=== PATIENT | female | born 1950 | race Caucasian/White ===

== ENCOUNTER → 2017-04-06 | Outpatient (CLI) | payer BC, MEDICARE, OTHER ==
[2016-12-14 14:15] VITALS: BP 126/52
[~2017-04-06] MED LIST: OSEL75CA PO
--- NOTE | 2017-04-06 14:00 | RAD ---
Indication: Palpable lump in the upper abdomen just below the right breast. Sonographic interrogation of the area of lump in the right upper abdominal wall was performed. There is a hypoechoic mass at this location measuring approximately 0.9 x 1.1 x 0.4 cm. This does not appear to be purely cystic. No definite internal vascularity is identified, however, there is some vascularity along the margins. This is somewhat ill-defined. No other masses are seen. Impression: Indistinct hypoechoic mass in the subcutaneous tissues of the right upper abdomen at the area of palpable abnormality. This cannot be characterized as purely cystic. A solid mass lesion cannot be entirely excluded and close clinical follow-up and/or biopsy would be recommended.
== END | disposition home or self-care (01) ==
LOC: US 12:49
PROVIDERS: ATTEND Nurse Practitioner Family
DX: M79.89 Other specified soft tissue disorders (principal); R14.0 Abdominal distension (gaseous)
CPT/HCPCS: 76881

== ENCOUNTER 2019-11-10 07:02 | Emergency (ER) | payer BC, MEDICARE, OTHER ==
[~2019-11-10] VITALS: Ht 162.6 cm; Wt 95.1 kg
[2019-11-10] MEDS ORDERED: ASPIRIN 81 MG TAB.CHEW PO ONE (07:45)
--- NOTE | 2019-11-10 07:53 | PHYS DOC ---
Past History Past Medical History: Cancer ([id number]), Hypothyroid, Other Past Surgical History: Cholecystectomy, Other Additional Past Surgical Histo: lumpectomy Smoking: Non-smoker Alcohol Use: Rarely Drug Use: None Adult General Chief Complaint Chief Complaint: OTHER COMPLAINTS HPI HPI Patient is a 69-year-old female with left-sided facial paresthesia that she first noted at approximately 4:00 this morning, on waking up. She was last normal at 2030 last night as she went to sleep. She does not have any difficulty speaking, moving her arms or legs, and no other paresthesia. She admits to drinking alcohola deric last night with salt, and having salted food at a [employer] restaurant. The paresthesia has improved during the course of the morning. She describes the sensation as a feather brushing the left side of her face. who is with her denies that there is been any change in behavior or mentation, no change in speaking or slurred speech, and no weakness noted in her arms or legs. She reports having similar episode in the past which was "incorrectly diagnosed as a TIA" but her primary doctor believed that she was hypoglycemic. This is been going on intermittently for months. She was convinced to come to the emergency department today by her . She has several other complaints including intermittent chills for the past week. She has not taken her temperature. She has not taken any antipyretics. She denies any cough or fever. She denies any recent travel. She denies any dysuria or hematuria. Nothing makes this better or worse. She additionally notes she has swollen lymph nodes in the left side of her neck. Normally when they swell they swell equally bilaterally. She noticed this in the mere this morning. She is concerned because of a remote history of breast cancer, 2003, that was treated with radiation. No chemotherapy. A lumpectomy was performed on the right side. No mastectomy. No recent changes in weight. She has a history of hypothyroidism, reports that she had her thyroid hormone levels checked relatively recently and there were no changes made in her thyroid supplementation. No recent changes in medications.[] Review of Systems Review of Systems Constitutional: Denies fever or weight change, see history of present illness[] Eyes: Denies change in visual acuity, redness, or eye pain [] HENT: Denies nasal congestion or sore throat [] Respiratory: Denies cough or shortness of breath [] Cardiovascular: No chest pain or palpitations[] GI: Denies abdominal pain, nausea, vomiting, bloody stools or diarrhea [] : Denies dysuria or hematuria [] Musculoskeletal: Denies back pain or joint pain [] Integument: Denies rash or skin lesions [] Neurologic: Denies headache, focal weakness, see history of present illness[] Endocrine: Denies polyuria or polydipsia [] All other systems were reviewed and found to be within normal limits, except as documented in this note. Allergies Allergies Allergies Coded Allergies Type Severity Reaction Last Updated Verified aspirin Allergy Unknown MIGRAINE 12/14/16 Yes dipyridamole Allergy Unknown MIGRAINE 12/14/16 Yes sulfamethoxazole Allergy Unknown HIVES 12/14/16 Yes trimethoprim Allergy Unknown HIVES 12/14/16 Yes codeine Adverse Reaction Unknown VOMITING 12/14/16 Yes Physical Exam Physical Exam Constitutional: Well developed, well nourished, no acute distress, non-toxic appearance. [] HENT: Normocephalic, atraumatic, bilateral external ears normal, oropharynx moist, no oral exudates, nose normal. [] Eyes: PERRLA, EOMI, conjunctiva normal, no discharge. [] Neck: Normal range of motion, no tenderness, supple, no stridor. [] Cardiovascular:Heart rate regular rhythm, no murmur [] Lungs & Thorax: Bilateral breath sounds clear to auscultation [] Abdomen: Bowel sounds normal, soft, no tenderness, no masses, no pulsatile masses. [] Skin: Warm, dry, no erythema, no rash. [] Back: No tenderness, no CVA tenderness. [] Extremities: No tenderness, no cyanosis, no clubbing, ROM intact, 1-2+ pretibial edema bilaterally symmetric. [] Neurologic: Alert and oriented X 3, normal motor function, normal sensory function, no focal deficits noted. Normal gait. See NIH stroke scale[] Psychologic: Affect normal, judgement normal, mood normal. [] Current Patient Data Lab Results Laboratory Tests Test 11/10/19 07:20 11/10/19 07:46 11/10/19 08:35 11/10/19 08:41 Glucose (Fingerstick) 102 mg/dL White Blood Count 6.2 x10^3/uL Red Blood Count 4.28 x10^6/uL Hemoglobin 13.3 g/dL Hematocrit 40.2 % Mean Corpuscular Volume 94 fL Mean Corpuscular Hemoglobin 31 pg Mean Corpuscular Hemoglobin Concent 33 g/dL Red Cell Distribution Width 13.8 % Platelet Count 247 x10^3/uL Neutrophils (%) (Auto) 69 % Lymphocytes (%) (Auto) 23 % Monocytes (%) (Auto) 6 % Eosinophils (%) (Auto) 1 % Basophils (%) (Auto) 1 % Neutrophils # (Auto) 4.3 x10^3uL Lymphocytes # (Auto) 1.4 x10^3/uL Monocytes # (Auto) 0.3 x10^3/uL Eosinophils # (Auto) 0.1 x10^3/uL Basophils # (Auto) 0.0 x10^3/uL Prothrombin Time 9.9 SEC Prothromb Time International Ratio 1.0 Activated Partial Thromboplast Time 27 SEC Sodium Level 138 mmol/L Potassium Level 4.0 mmol/L Chloride Level 103 mmol/L Carbon Dioxide Level 26 mmol/L Anion Gap 9 Blood Urea Nitrogen 13 mg/dL Creatinine 0.9 mg/dL Estimated GFR (Cockcroft-Gault) 62.3 BUN/Creatinine Ratio 14 Glucose Level 103 mg/dL Calcium Level 8.9 mg/dL Magnesium Level 1.9 mg/dL Total Bilirubin 0.3 mg/dL Aspartate Amino Transf (AST/SGOT) 22 U/L Alanine Aminotransferase (ALT/SGPT) 29 U/L Alkaline Phosphatase 84 U/L Troponin I Quantitative < 0.017 ng/mL LO-Vie-I-Type Natriuretic Peptide 57 pg/mL Total Protein 7.9 g/dL Albumin 3.7 g/dL Albumin/Globulin Ratio 0.9 Urine Collection Type Unknown Urine Color Straw Urine Clarity Clear Urine pH 6.0 Urine Specific [place] 1.010 Urine Protein Neg Urine Glucose (UA) Neg mg/dL Urine Ketones (Stick) Neg mg/dL Urine Blood Neg Urine Nitrite Neg Urine Bilirubin Neg Urine Urobilinogen Dipstick 0.2 mg/dL Urine Leukocyte Esterase Trace Urine RBC 0 /HPF Urine WBC 1-4 /HPF Urine Squamous Epithelial Cells Many /LPF Urine Bacteria Few /HPF Current Medications Medications (Trade) Dose Ordered Sig/Greta Route PRN Reason Start Time Stop Time Status Last Admin Dose Admin Aspirin (Children'S Aspirin) 324 mg 1X ONCE PO 11/10/19 07:45 11/10/19 07:48 DC 11/10/19 07:52 Laboratory Tests Test 11/10/19 07:20 Glucose (Fingerstick) 102 mg/dL (70-99) H EKG EKG EKG shows a sinus rhythm at 72 bpm, normal axis, QTC [address] elevations. Interpreted by me at 0813[] Radiology/Procedures Radiology/Procedures REASON: left sided facial paresthesia intermittently for months, dizzines PROCEDURE: CT HEAD WO CONTRAST CT brain without contrast. HISTORY: Left-sided facial paresthesias intermittently for months, dizziness CT scan of brain was done without contrast. Sinuses are clear. There is no intracranial hemorrhage or subdural hematoma. Ventricles are normal in size. There is no mass or shift of the midline. There is decreased density in the periventricular white matter. White matter disease as mildly worsened compared to the study from May 2012. An acute CVA is not identified. IMPRESSION: 1. Worsening chronic white matter disease. 2. No intracranial hemorrhage or mass or acute CVA noted. Chest x-ray: PA and lateral No evidence of an infiltrate, no effusion, no pneumothorax[] Course & Med Decision Making Course & Med Decision Making Pertinent Labs and Imaging studies reviewed. (See chart for details) Emergency department course: Patient arrived, was placed in bed, and tolerated exam well. She was transported to and from [place] without any complications. After the return of laboratory and imaging findings, these were discussed with the patient voiced understanding. She reported that her symptoms had improved while in the emergency department. She was discharged in improved condition with all questions answered. Medical decision making: Patient was not a TPA candidate given that her NIH was 0 and onset of symptoms was greater than 4 and half hours. Do not believe this to be a stroke syndrome nor TIA. There is no evidence of significant electrolyte abnormality. No urinary tract infection. No pneumonia or pneumothorax. This may be a viral syndrome causing these chills. TSH is pending. However, patient reports that she had a recent thyroid panel performed that was normal.[] Dragon Disclaimer Dragon Disclaimer This electronic medical record was generated, in whole or in part, using a voice recognition dictation system. Departure Departure: Impression: Primary Impression: Paresthesia Additional Impression: Chills Disposition: HOME, SELF-CARE Condition: IMPROVED Referrals: DARION VALDEZ (PCP) Follow-up in 2 days Patient Instructions: DASH Diet, Paresthesia Additional Instructions: Follow-up with your regular doctor in 2 days. Your blood pressure was elevated on arrival to the emergency department today it improved during the course of your emergency department stay. Take acetaminophen or ibuprofen as needed for fever or chills, as directed on the packaging. Return to the ER if worsening weakness, fever of more than 101, or any other concerns. NIHSS - ED NIH Stroke Scale: NIH Stroke Scale Response (Comments) Value Level of Consciousness: 0 Alert/Responsive 0 LOC Questions: 0 Answers both correctly 0 LOC Commands: 0 Performs both tasks 0 Best Gaze: 0 Normal 0 Visual: 0 No visual loss 0 Facial Palsy: 0 Normal, symmetrical 0 Motor - Left Arm 0 No drift 0 Motor - Right Arm 0 No drift 0 Motor - Left Leg 0 No drift 0 Motor: Right Leg 0 No drift 0 Limb Ataxia: 0 Absent 0 Sensory: 0 No loss 0 Best Language: 0 Normal 0 Dysathria: 0 Normal 0 Extinction and Inattention: 0 Normal 0 Total 0 Problem Qualifiers VIBHA CUNNINGHAM DO Nov 10, 2019 07:53
--- NOTE | 2019-11-10 08:01 | EKG ---
[address] [address] Test Date: 2019-11-10 Test Time: 07:55:23 Pat Name: BERNARD SOTOMAYOR Department: Room: Gender: F Equal Opportunity Officer: : 1950 Requested By: VIBHA CUNNINGHAM Order Number: [id number] Reading MD: Measurements Intervals Mobile Rate: 72 P: 37 OH: 190 QRS: 12 QRSD: 76 T: 15 QT: 388 QTc: 426 Interpretive Statements SINUS RHYTHM NORMAL ECG RI6.01 No previous ECG available for comparison
[2019-11-10 08:15] LABS: BASO % 1 % (0-3); EOS # 0.1 x10^3/uL (0.0-0.7); EOS % 1 % (0-3); HEMATOCRIT 40.2 % (36.0-47.0); HEMOGLOBIN 13.3 g/dL (12.0-15.5); LYMPH # 1.4 x10^3/uL (1.0-4.8); LYMPH % 23 % (24-48); MEAN CORPUSCULAR HEMOGLOBIN 31 pg (25-35); MEAN CORPUSCULAR HGB CONC 33 g/dL (31-37); MEAN CORPUSCULAR VOLUME 94 fL (79-100); MONO # 0.3 x10^3/uL (0.0-1.1); MONO % 6 % (0-9); NEUT # 4.3 x10^3uL (1.8-7.7); NEUT % 69 % (31-73); PLATELET COUNT 247 x10^3/uL (140-400); RED BLOOD COUNT 4.28 x10^6/uL (3.50-5.40); RED CELL DISTRIBUTION WIDTH 13.8 % (11.5-14.5); WHITE BLOOD COUNT 6.2 x10^3/uL (4.0-11.0)
--- NOTE | 2019-11-10 08:33 | RAD ---
CT brain without contrast. HISTORY: Left-sided facial paresthesias intermittently for months, dizziness CT scan of brain was done without contrast. Sinuses are clear. There is no intracranial hemorrhage or subdural hematoma. Ventricles are normal in size. There is no mass or shift of the midline. There is decreased density in the periventricular white matter. White matter disease as mildly worsened compared to the study from May 2012. An acute CVA is not identified. IMPRESSION: 1. Worsening chronic white matter disease. 2. No intracranial hemorrhage or mass or acute CVA noted. PQRS Compliance Statement: One or more of the following individualized dose reduction techniques were utilized for this examination: 1. Automated exposure control 2. Adjustment of the mA and/or kV according to patient size 3. Use of iterative reconstruction technique Electronically signed by: Morgan Conrad MD (11/10/2019 8:30 AM) [facility] [place]
[2019-11-10 09:16] LABS: BILIRUBIN,URINE NEG (NEG); CLARITY,URINE CLEAR; COLOR,URINE STRAW; GLUCOSE,URINE NEG (NEG)
[2019-11-10 09:17] LABS: BACTERIA,URINE FEW /HPF (0-FEW); NITRITE,URINE NEG (NEG); RBC,URINE 0 /HPF (0-2); SQUAMOUS EPITHELIAL CELL,UR MANY /LPF; UROBILINOGEN,URINE 0.2 mg/dL (0.2 mg/dL)
[2019-11-10 09:19] LABS: ALBUMIN 3.7 g/dL (3.4-5.0); ALBUMIN/GLOBULIN RATIO 0.9 (1.0-1.7); CALCIUM 8.9 mg/dL (8.5-10.1); CREATININE 0.9 mg/dL (0.6-1.0); GFR 62.3; MAGNESIUM 1.9 mg/dL (1.8-2.4); TOTAL BILIRUBIN 0.3 mg/dL (0.2-1.0); TOTAL PROTEIN 7.9 g/dL (6.4-8.2)
[2019-11-10 09:46] VITALS: BP 138/72
--- NOTE | 2019-11-10 11:07 | RAD ---
PA and lateral chest. HISTORY: Chills, paresthesia PA and lateral views were taken of the chest. Lungs are clear. Heart is normal in size. There is no pleural effusion. There is mild dorsal kyphosis. IMPRESSION: 1. No acute chest disease. Electronically signed by: Morgan Conrad MD (11/10/2019 11:04 AM) [facility]
== END 2019-11-10 09:55 | disposition home or self-care (01) ==
LOC: ER 07:02
DX: R20.2 Paresthesia of skin (principal); R50.9 Fever, unspecified; E03.9 Hypothyroidism, unspecified; Z88.6 Allergy status to analgesic agent; Z88.8 Allergy status to other drugs, medicaments and biological substances; Z88.5 Allergy status to narcotic agent; Z88.1 Allergy status to other antibiotic agents; Z88.2 Allergy status to sulfonamides
CPT/HCPCS: 36415; 70450; 71046; 80053; 81001; 82947; 83735; 83880; 84443; 84484; 85025; 85610; 85730; 87040; 87086; 93005; 99285

== ENCOUNTER 2019-11-17 03:45 | Emergency (ER) | payer BC, MEDICARE, OTHER ==
[~2019-11-17] VITALS: Ht 162.6 cm; Wt 95.1 kg
[2019-11-17 04:08] VITALS: BP 151/83
--- NOTE | 2019-11-17 04:51 | PHYS DOC ---
Past History Past Medical History: Cancer, Hypothyroid, Other Past Surgical History: Cancer Surgery, Cholecystectomy, Knee Replacement, Other Additional Past Surgical Histo: lumpectomy Smoking: Non-smoker Alcohol Use: Rarely Drug Use: None Adult General Chief Complaint Chief Complaint: General Complaint HPI HPI 69-year-old female in [facility] with involuntary he up her extremity movements. The patient woke up to go to the restroom around 2 AM and while she was walking to the restroom she noticed that she was having involuntary for extremity movements. She said they were similar to balance corrections that he should make so that she don't fall over. She was not feeling dizzy. She was not trying to move her arms, they were just moving on the ground. This episode lasted for 5 to maybe 10 minutes. She then went back to baseline. She denies any other symptoms. No headache no change in voice no altered sensation. She did have a similar episode one week ago and was worked up in this emergency room by my colleague. This included head CT which did not show any acute findings. She does have some white matter disease that has worsened the last 7 years. The patient does not currently see a neurologist. She has a new primary care physician and is being worked up for a swelling of the left side of her neck as well as the above listed symptoms. Patient denies fever or chills. She recently had her thyroid labs evaluated and does not believe the numbers were unusual. She is on thyroid replacement at baseline. Review of Systems Review of Systems Constitutional: Denies fever or chills [] Eyes: Denies change in visual acuity, redness, or eye pain [] HENT: Denies nasal congestion or sore throat [] Respiratory: Denies cough or shortness of breath [] Cardiovascular: No additional information not addressed in HPI [] GI: Denies abdominal pain, nausea, vomiting, bloody stools or diarrhea [] : Denies dysuria or hematuria [] Musculoskeletal: Denies back pain or joint pain [] Integument: Denies rash or skin lesions [] Neurologic: Involuntary upper extremity movements. Denies headache, focal weakness or sensory changes [] Endocrine: Denies polyuria or polydipsia [] All other systems were reviewed and found to be within normal limits, except as documented in this note. Allergies Allergies Allergies Coded Allergies Type Severity Reaction Last Updated Verified dipyridamole Allergy Unknown MIGRAINE 12/14/16 Yes sulfamethoxazole Allergy Unknown HIVES 12/14/16 Yes trimethoprim Allergy Unknown HIVES 12/14/16 Yes codeine Adverse Reaction Unknown VOMITING 12/14/16 Yes Physical Exam Physical Exam Constitutional: Well developed, obese, well nourished, no acute distress, non- toxic appearance. [] HENT: Normocephalic, atraumatic, bilateral external ears normal, oropharynx moist, no oral exudates, nose normal. [] Eyes: PERRLA, EOMI, conjunctiva normal, no discharge. [] Neck: Normal range of motion, no tenderness, supple, no stridor. [] Cardiovascular:Heart rate regular rhythm, no murmur [] Lungs & Thorax: Bilateral breath sounds clear to auscultation [] Abdomen: Bowel sounds normal, soft, no tenderness, no masses, no pulsatile masses. [] Skin: Warm, dry, no erythema, no rash. [] Back: No tenderness, no CVA tenderness. [] Extremities: No tenderness, no cyanosis, no clubbing, ROM intact, no edema. [] Neurologic: Alert and oriented X 3, normal motor function, normal sensory function, no focal deficits noted. [] Psychologic: Affect normal, judgement normal, mood concerned.[] Current Patient Data Vital Signs Vital Signs Date Time Temp Pulse Resp B/P (MAP) Pulse Ox O2 Delivery O2 Flow Rate FiO2 11/17/19 04:08 97.8 65 18 96 Room Air EKG EKG [] Radiology/Procedures Radiology/Procedures [] Course & Med Decision Making Course & Med Decision Making Pertinent Labs and Imaging studies reviewed. (See chart for details) The patient's labs are unremarkable. Given her recent head CT and the fact that her symptoms have resolved at this time, I do not believe further imaging is necessary. I recommended that she continue to follow up with her primary care physician and referral to a neurologist. She stated verbal understanding. She is stable for discharge at this time. [] Dragon Disclaimer Dragon Disclaimer This electronic medical record was generated, in whole or in part, using a voice recognition dictation system. Departure Departure: Impression: Primary Impression: Involuntary movements Disposition: HOME, SELF-CARE Condition: STABLE Referrals: DARION VALDEZ (PCP) EDITH HOWELL DO Nov 17, 2019 04:51
[2019-11-17 05:09] LABS: BASO # 0.1 x10^3/uL (0.0-0.2); BASO % 2 % (0-3); EOS # 0.1 x10^3/uL (0.0-0.7); EOS % 2 % (0-3); HEMATOCRIT 39.3 % (36.0-47.0); HEMOGLOBIN 13.3 g/dL (12.0-15.5); LYMPH # 1.3 x10^3/uL (1.0-4.8); LYMPH % 25 % (24-48); MEAN CORPUSCULAR HEMOGLOBIN 31 pg (25-35); MEAN CORPUSCULAR HGB CONC 34 g/dL (31-37); MEAN CORPUSCULAR VOLUME 93 fL (79-100); MONO # 0.4 x10^3/uL (0.0-1.1); MONO % 7 % (0-9); NEUT # 3.3 x10^3uL (1.8-7.7); NEUT % 64 % (31-73); PLATELET COUNT 219 x10^3/uL (140-400); RED BLOOD COUNT 4.23 x10^6/uL (3.50-5.40); RED CELL DISTRIBUTION WIDTH 13.3 % (11.5-14.5); WHITE BLOOD COUNT 5.2 x10^3/uL (4.0-11.0)
[2019-11-17 05:16] LABS: CALCIUM 8.7 mg/dL (8.5-10.1); CREATININE 1.1 mg/dL (0.6-1.0); GFR 49.4; POTASSIUM 4.1 mmol/L (3.5-5.1)
[2019-11-17 05:22] LABS: ALBUMIN 3.8 g/dL (3.4-5.0); ALBUMIN/GLOBULIN RATIO 0.9 (1.0-1.7); TOTAL BILIRUBIN 0.3 mg/dL (0.2-1.0); TOTAL PROTEIN 7.9 g/dL (6.4-8.2)
== END 2019-11-17 05:40 | disposition home or self-care (01) ==
LOC: ER 03:45
DX: R25.9 Unspecified abnormal involuntary movements (principal); E03.9 Hypothyroidism, unspecified; Z88.5 Allergy status to narcotic agent; Z88.8 Allergy status to other drugs, medicaments and biological substances; Z88.1 Allergy status to other antibiotic agents; Z88.2 Allergy status to sulfonamides
CPT/HCPCS: 36415; 80053; 85025; 99284

== ENCOUNTER 2021-11-04 09:33 | Inpatient (IN) | payer BC, MEDICARE, OTHER ==
[~2021-11-04] VITALS: Ht 162.6 cm; Wt 76.1 kg
[2021-11-04] VITALS (9 sets, daily range): BP systolic 100–156; BP diastolic 66–95
[2021-11-04] MEDS ORDERED: IV NORMAL SALINE 1,000ML 1,000 ML IV SCH (09:45)
[2021-11-04] MEDS ORDERED: DEXAMETHASONE SOD PHOS 10 MG/ML VIAL. IVP ONE (09:45)
--- NOTE | 2021-11-04 10:16 | PHYS DOC ---
Past History Past Medical History: Cancer, Dementia, Hypothyroid, Other Past Medical History Limited secondary to dementia Past Surgical History: Cancer Surgery, Cholecystectomy, Knee Replacement, Other Additional Past Surgical Histo: lumpectomy Past Surgical History Limited secondary to dementia Smoking: Non-smoker Alcohol Use: Rarely Drug Use: None Social History Limited secondary to dementia General Adult EDM: Chief Complaint: WEAKNESS/GENERALIZED HPI: HPI: 71-year-old female with past medical history of dementia presents via EMS from home with report of generalized weakness, fatigue, and COVID-19. Patient reportedly tested positive with her on 10/28/2021. Patient subsequently has had generalized malaise and weakness. reports patient has not been eating and drinking. EMS reports patient's O2 sats down to 84% on room air upon their arrival. Patient was placed on supplemental O2 with increase in O2 sat up to 94% on 4L NC. Patient is a poor historian secondary to her dementia. Spouse also reports patient was found on floor this morning. Patient denies any headache or neck pain. History of present illness limited secondary to dementia. Review of Systems: Review of Systems: Review of systems limited secondary to dementia Current Medications: Current Meds: Current Medications Medications (Trade) Dose Ordered Sig/Greta Start Time Stop Time Status Last Admin Dose Admin Dexamethasone Sodium Phosphate (Decadron) 10 mg 1X ONCE 11/04/21 09:45 11/04/21 09:46 DC Sodium Chloride 1,000 ml @ 1,000 mls/hr Q1H 11/04/21 09:45 11/04/21 10:44 11/04/21 09:35 1,000 MLS/HR Allergies: Allergies: Allergies Coded Allergies Type Severity Reaction Last Updated Verified dipyridamole Allergy Unknown MIGRAINE 11/04/21 Yes sulfamethoxazole Allergy Unknown HIVES 11/04/21 Yes trimethoprim Allergy Unknown HIVES 11/04/21 Yes codeine Adverse Reaction Unknown VOMITING 11/04/21 Yes Physical Exam: PE: Constitutional: Well developed, well nourished, no acute distress, non-toxic appearance HENT: Normocephalic, atraumatic, TMs clear bilaterally, nares clear Eyes: PERRL, EOMI, conjunctiva normal, no discharge Neck: Normal range of motion, no midline tenderness, supple Lungs & Thorax: No respiratory distress, equal chest rise and fall Abdomen: Soft, no tenderness; pelvis stable and nontender Skin: Warm, dry, no erythema, no rash Extremities: No tenderness, ROM intact, no edema Neurologic: Alert and oriented X name only, confused, speech normal, normal motor function, normal sensory function, no focal deficits noted Psychologic: Affect normal, judgment abnormal Current Patient Data: Vital Signs: Vital Signs Date Time Temp Pulse Resp B/P (MAP) Pulse Ox O2 Delivery O2 Flow Rate FiO2 11/04/21 10:05 99.1 84 18 148/79 (102) 86 Room Air EKG: EKG: @1006 NSR at 74bpm, NO ST elevation, QRS 76ms, QT/QTc 374/420ms, nonspecific t wave inversion III Radiology/Procedures: Radiology/Procedures: PROCEDURE: CT ANGIOGRAPHY CHEST CT angiography of the chest 11/04/2021 12:09 PM Indication: Reason: Hypoxia, COVID, elevated d-dimer, Technique: Multiple contiguous axial images were obtained through the chest after administration of intravenous iodinated contrast. Coronal, sagittal, and 3-D MIP reformations were created. Comparison: Chest radiograph November 10, 2019 Findings: There is no filling defect within central pulmonary arteries or evidence of acute pulmonary embolism. Heart size is normal. No pericardial effusion is identified. No pathologically enlarged mediastinal adenopathy is identified. Scattered small mediastinal lymph nodes noted. No pneumothorax or pleural effusi on is identified. Groundglass infiltrates with areas of intralobular septal thickening are seen throughout both lungs. Mild lower lobe bronchiectasis appears to be present. The findings are consistent with provided history of Covid pneumonia. Within the right lower lobe, adjacent to a branch of the pulmonary artery there is a 7 mm noncalcified nodule (axial image 78). Limited visualization of the upper abdomen demonstrates a right renal cyst measuring 3.3 cm. No acute abnormalities of the upper abdomen are identified no acute osseous changes are identified. Chronic appearing compression deformity of the L1 vertebral body noted. IMPRESSION: 1. No evidence of acute pulmonary embolism 2. Diffuse pulmonary infiltrates consistent with history of Covid pneumonia. Edema can have a similar appearance, but is less likely given history 3. 7 mm noncalcified nodule, right lower lobe. Infectious etiology is possible. Recommend 6 month follow-up CT chest to evaluate resolution or persistence . CT DOSING PQRS STATEMENT: One or more of the following individualized dose reduction techniques were utilized for this examination: 1. Automated exposure control 2. Adjustment of the mA and/or kV according to patient size 3. Use of iterative reconstruction technique Electronically signed by: Yaya Aguirre MD (11/04/2021 12:18 PM) [id number] PROCEDURE: CT HEAD AND CERVICAL SPINE [facility] Compliance Statement: One or more of the following individualized dose reduction techniques were utilized for this examination: 1. Automated exposure control 2. Adjustment of the mA and/or kV according to patient size 3. Use of iterative reconstruction technique CT head and cervical spine without contrast 11/04/2021 12:09 PM INDICATION: Fall, weakness. Pain COMPARISON: CT head 11/10/2019 TECHNIQUE: Multiple axial CT images of the head were obtained from skull base through the vertex without intravenous contrast. Multiple axial CT images of the cervical spine were obtained without intravenous contrast. Coronal and sagittal reformats are provided. FINDINGS: Head: Ventricles, sulci and basal cisterns are prominent compatible with moderate generalized cerebral volume loss. 11/03/2021There is no hydrocephalus. Farfan-white matter differentiation is normal. There is no acute intracranial hemorrhage. There is no mass, mass effect or midline shift. Posterior fossa is normal in appearance. Visualized portions of the orbits are normal with exception of bilateral lens replacement. Moderate mucosal thickening of the maxillary sinuses bilaterally. Mild mucosal thickening of ethmoid air cells and left sphenoid sinus. There is under pneumatization of the left frontal sinus. Mastoid air cells are well aerated. Scalp and calvaria are normal. Cervical spine: Alignment of the cervical spine is normal. Skull base is intact. Craniocervical junction is normal in appearance. Atlantoaxial articulation is normal. Vertebral body heights are maintained without evidence for acute fracture. At C3-C4, there is no significant disc herniation. There is severe left facet arthropathy with moderate left uncovertebral joint disease resulting in moderate to severe left neural foraminal stenosis. Mild right neural foraminal stenosis. At C4-C5, there is a posterior discussed by complex at moderate left and moderate facet arthropathy and moderate to severe left and moderate right uncovertebral joint disease resulting in severe left and moderate right neural foraminal stenosis and mild osseous canal stenosis. At C5-C6, there is a posterior disc osteophyte complex with moderate facet and uncovertebral joint disease resulting in moderate bilateral neuroforaminal stenosis and mild osseous spinal canal stenosis. At C6-C7, there is a posterior discussed by complex with calcified central disc protrusion. There is moderate facet arthropathy. Moderate uncovertebral joint disease. Moderate left and mild right neuroforaminal stenosis. Mild spinal canal stenosis. There is no prevertebral soft tissue swelling. Thyroid gland is normal in appearance. Visualized portions of the lung apices are normal without evidence for suspicious pulmonary nodule or infiltrate. IMPRESSION: 1. No acute intracranial hemorrhage. Moderate generalized cerebral volume loss. Low-attenuation in the periventricular white matter is suggestive of chronic small vessel ischemic changes. 2. No acute fracture or malalignment of the cervical spine. Moderate cervical spondylosis as detailed above. Electronically signed by: Taylor Reeves MD (11/04/2021 12:25 PM) [id number] Heart Score: C/O Chest Pain: N/A Course & Med Decision Making: Course & Med Decision Making Pertinent Labs and Imaging studies reviewed. (See chart for details) Patient with past medical history of dementia presents from home with known COVID-19 infection. Patient reportedly has had increased fatigue and not eating and drinking. Spouse became concerned and therefore called EMS. EMS reports patient's O2 sats down to 84% on room air. Improved with supplemental O2. Patient is afebrile. EKG stable. Labs obtained and posted to chart. Repeat Covid testing positive. D-dimer elevated. CT head/cervical spine obtained due to history of fall in patient who is poor historian. CT head/cervical spine without acute process. CTA chest obtained with findings concerning for COVID pneumonia without signs of acute PE. An incidental pulmonary nodule was also noted with recommendation for future re-evaluation in 6 months. Incidental finding and recommendation discussed with patient's , Matheus, via telephone discussion by Marianne FORMAN. Empiric antibiotic initiated secondary to COVID pneumonia. Patient requiring admission for further evaluation and treatment. Discussed with Dr. Vela (hospitalist) who is in agreement with admission. COVID-19 CRITERIA: The patient was evaluated during the global COVID-19 pandemic, and that diagnosis was suspected/considered upon their initial presentation. Their evaluation, treatment and testing was consistent with current guidelines for patients who present with complaints or symptoms that may be related to COVID-19. Dragon Disclaimer: Dragon Disclaimer: This electronic medical record was generated, in whole or in part, using a voice recognition dictation system. Departure Departure: Impression: Primary Impression: Respiratory failure Qualified Codes: J96.01 - Acute respiratory failure with hypoxia Additional Impressions: Hypoxia Pneumonia due to COVID-19 virus Pulmonary nodule Disposition: ADMITTED INPATIENT Admitting Physician: Bravo Vela Condition: GUARDED Referrals: DARION VALDEZ (PCP) COVID-19 Assessment COVID-19 Patient Risks: Age 65 or older: Yes Sign of co-morbidity: No Exp to person + for COVID: Yes Exp to PUI: No Travel from affected area: No Lower respiratory symptoms: Yes Fever: Yes Other: Yes PPE Use: Full PPE with N95 mask or PAPR: Yes Critical Care Time Critical care time was 30 minutes which includes time at bedside, spent in discussion of patient's care with specialists and/or family members, with interpretation of laboratory and/or radiological studies and is exclusive of procedures. SUNNY JARAMILLO DO Nov 04, 2021 10:16
--- NOTE | 2021-11-04 10:30 | EKG ---
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
[2021-11-04 10:41] LABS: CALCIUM 8.3 mg/dL (8.5-10.1); CREATININE 0.8 mg/dL (0.6-1.0); GFR 70.9; POTASSIUM 3.6 mmol/L (3.5-5.1)
[2021-11-04 10:44] LABS: BASO % 0 % (0-3); EOS % 0 % (0-3); HEMATOCRIT 38.7 % (36.0-47.0); LYMPH # 0.7 x10^3/uL (1.0-4.8); LYMPH % 10 % (24-48); MEAN CORPUSCULAR HEMOGLOBIN 31 pg (25-35); MEAN CORPUSCULAR HGB CONC 34 g/dL (31-37); MEAN CORPUSCULAR VOLUME 93 fL (79-100); MONO # 0.5 x10^3/uL (0.0-1.1); MONO % 8 % (0-9); NEUT # 5.5 x10^3uL (1.8-7.7); NEUT % 81 % (31-73); PLATELET COUNT 219 x10^3/uL (140-400); RED BLOOD COUNT 4.18 x10^6/uL (3.50-5.40); RED CELL DISTRIBUTION WIDTH 12.8 % (11.5-14.5); WHITE BLOOD COUNT 6.7 x10^3/uL (4.0-11.0)
[2021-11-04 11:04] LABS: INFLUENZA A PATIENT NEGATIVE (NEGATIVE); INFLUENZA B PATIENT NEGATIVE (NEGATIVE)
[2021-11-04 11:08] LABS: ALBUMIN 2.9 g/dL (3.4-5.0); ALBUMIN/GLOBULIN RATIO 0.7 (1.0-1.7); MAGNESIUM 2.4 mg/dL (1.8-2.4); TOTAL BILIRUBIN 0.4 mg/dL (0.2-1.0); TOTAL PROTEIN 7.1 g/dL (6.4-8.2)
[2021-11-04] MEDS ORDERED: AZITHROMYCIN 500 MG in IV NORMAL SALINE 250ML 250 ML IV ONE (11:45)
[2021-11-04] MEDS ORDERED: IOHEXOL 350 MG/ML 100 ML VIAL. IV ONE (11:45)
[2021-11-04] MEDS ORDERED: CONTRAST GIVEN. MC PRN (11:45)
[2021-11-04] MEDS ORDERED: IV NORMAL SALINE 250ML 250 ML ONE (11:48)
[2021-11-04] MEDS ORDERED: AZITHROMYCIN 500 MG VIAL. IV ONE (11:48)
[2021-11-04] MEDS ORDERED: IV NORMAL SALINE 50ML 50 ML ONE (11:48)
[2021-11-04] MEDS ORDERED: cefTRIAXone SODIUM 1 GM VIAL ONE (11:48)
[2021-11-04] MEDS ORDERED: ONDANSETRON PF 4 MG/2 ML VIAL. IVP PRN (12:15)
[2021-11-04] MEDS ORDERED: ACETAMINOPHEN 325 MG TABLET PO PRN (12:15)
[2021-11-04 12:16] LABS: BILIRUBIN,URINE SMALL (NEG); CLARITY,URINE HAZY; COLOR,URINE YELLOW; GLUCOSE,URINE NEG (NEG)
[2021-11-04 12:17] LABS: BACTERIA,URINE 0 /HPF (0-FEW); NITRITE,URINE NEG (NEG); SQUAMOUS EPITHELIAL CELL,UR FEW /LPF; UROBILINOGEN,URINE 0.2 mg/dL (0.2 mg/dL)
--- NOTE | 2021-11-04 12:21 | RAD ---
CT angiography of the chest 11/04/2021 12:09 PM Indication: Reason: Hypoxia, COVID, elevated d-dimer, Technique: Multiple contiguous axial images were obtained through the chest after administration of i ntravenous iodinated contrast. Coronal, sagittal, and 3-D MIP reformations were created. Comparison: Chest radiograph November 10, 2019 Findings: There is no filling defect within central pulmonary arteries or evidence of acute pulmonary embolism. Heart size is normal. No pericardial effusion is identified. No pathologically enlarged mediastinal adenopathy is identified. Scattered small mediastinal lymph nodes noted. No pneumothorax or pleural e ffusion is identified. Groundglass infiltrates with areas of intralobular septal thickening are seen throughout both lungs. Mild lower lobe bronchiectasis appears to be present. The findings are consist ent with provided history of Covid pneumonia. Within the right lower lobe, adjacent to a branch of th e pulmonary artery there is a 7 mm noncalcified nodule (axial image 78). Limited visualization of the upper abdomen demonstrates a right renal cyst measuring 3.3 cm. No acute abnormalities of the upper abdomen are identified no acute osseous changes are identified. Chronic a ppearing compression deformity of the L1 vertebral body noted. IMPRESSION: 1. No evidence of acute pulmonary embolism 2. Diffuse pulmonary infiltrates consistent with history of Covid pneumonia. Edema can have a similar appearance, but is less likely given history 3. 7 mm noncalcified nodule, right lower lobe. Infectious etiology is possible. Recommend 6 month fol low-up CT chest to evaluate resolution or persistence . CT DOSING PQRS STATEMENT: One or more of the following individualized dose reduction techniques were utilized for this examinat ion: 1. Automated exposure control 2. Adjustment of the mA and/or kV according to patient size 3. Use of iterative reconstruction technique Electronically signed by: Yaya Aguirre MD (11/04/2021 12:18 PM) [id number]
--- NOTE | 2021-11-04 12:27 | RAD ---
PQRS Compliance Statement: One or more of the following individualized dose reduction techniques were utilized for this examinat ion: 1. Automated exposure control 2. Adjustment of the mA and/or kV according to patient size 3. Use of iterative reconstruction technique CT head and cervical spine without contrast 11/04/2021 12:09 PM INDICATION: Fall, weakness. Pain COMPARISON: CT head 11/10/2019 TECHNIQUE: Multiple axial CT images of the head were obtained from skull base through the vertex with out intravenous contrast. Multiple axial CT images of the cervical spine were obtained without intrav enous contrast. Coronal and sagittal reformats are provided. FINDINGS: Head: Ventricles, sulci and basal cisterns are prominent compatible with moderate generalized cerebral volu me loss. 11/03/2021There is no hydrocephalus. Farfan-white matter differentiation is normal. There is no acute intracranial hemorrhage. There is no mass, mass effect or midline shift. Posterior fossa is no rmal in appearance. Visualized portions of the orbits are normal with exception of bilateral lens replacement. Moderate m ucosal thickening of the maxillary sinuses bilaterally. Mild mucosal thickening of ethmoid air cells and left sphenoid sinus. There is under pneumatization of the left frontal sinus. Mastoid air cells a re well aerated. Scalp and calvaria are normal. Cervical spine: Alignment of the cervical spine is normal. Skull base is intact. Craniocervical junction is normal in appearance. Atlantoaxial articulation is normal. Vertebral body heights are maintained without evidence for acute fracture. At C3-C4, there is no significant disc herniation. There is severe left facet arthropathy with modera te left uncovertebral joint disease resulting in moderate to severe left neural foraminal stenosis. M ild right neural foraminal stenosis. At C4-C5, there is a posterior discussed by complex at moderate left and moderate facet arthropathy and moderate to severe left and moderate right uncovertebral join t disease resulting in severe left and moderate right neural foraminal stenosis and mild osseous ruma l stenosis. At C5-C6, there is a posterior disc osteophyte complex with moderate facet and uncoverteb ral joint disease resulting in moderate bilateral neuroforaminal stenosis and mild osseous spinal can al stenosis. At C6-C7, there is a posterior discussed by complex with calcified central disc protrusi on. There is moderate facet arthropathy. Moderate uncovertebral joint disease. Moderate left and mild right neuroforaminal stenosis. Mild spinal canal stenosis. There is no prevertebral soft tissue swelling. Thyroid gland is normal in appearance. Visualized port ions of the lung apices are normal without evidence for suspicious pulmonary nodule or infiltrate. IMPRESSION: 1. No acute intracranial hemorrhage. Moderate generalized cerebral volume loss. Low-attenuation in th e periventricular white matter is suggestive of chronic small vessel ischemic changes. 2. No acute fracture or malalignment of the cervical spine. Moderate cervical spondylosis as detailed above. Electronically signed by: Taylor Reeves MD (11/04/2021 12:25 PM) [id number]
--- NOTE | 2021-11-04 13:50 | HP ---
DATE OF SERVICE: 11/04/2021 ADMIT DATE: 11/04/2021 ATTENDING PHYSICIAN: Dr. Vela. CHIEF COMPLAINT: Weakness and shortness of breath. HISTORY OF PRESENT ILLNESS: The patient is a 71-year-old female living at home with her . 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 She has profound dementia. She tested positive for coronavirus on 10/28/2021, eight days ago. Since then, she has become progressively weak, fatigued and not eating well. Her oxygen saturating 84% in the ED. Supplemental oxygen was added. CT of the chest showed no evidence of blood clots; however, she has extensive bilateral patchy infiltrates consistent with viral pneumonia. She was given Rocephin and Zithromax along with Decadron, admitted for coronavirus pneumonia. She has not had her vaccinations. ALLERGIES: SHE HAS ALLERGIES TO CODEINE, SULFA, ____. SURGICAL HISTORY: Includes cancer surgery, unspecified. Cholecystectomy. Knee replacement. MEDICAL HISTORY: Hypothyroidism. She also has profound dementia. CURRENT MEDICATIONS: Reviewed. I am trying to ascertain her exact medication list from her . SOCIAL HISTORY: She is a nonsmoker, nondrinker. FAMILY HISTORY: Unobtainable. REVIEW OF SYSTEMS: Unobtainable due to patient's confusion. PHYSICAL EXAMINATION: GENERAL: When I saw her, this is a pleasant elderly female who was very disoriented. She is not in any acute distress. INITIAL VITAL SIGNS: Showed a blood pressure 143/101, pulse is 76 and regular, oxygen saturation 96% on 3 liters by nasal cannula, temperature 99.1 degrees Fahrenheit. HEENT: Head is without trauma. Pupils are reactive. Sclerae nonicteric. Oropharynx is clear. NECK: Supple, no bruits. LUNGS: Coarse rhonchi bilaterally. CARDIOVASCULAR: Showed regular heart tones. No gallops. ABDOMEN: Soft. EXTREMITIES: Without edema. NEUROLOGIC: Pleasantly confused. No focal deficit. No lateralizing signs. Speech is fluent. SKIN: Warm and dry. PERTINENT LABORATORY STUDIES: Hemoglobin is 13.0 g/dL with a white count of 6700. Electrolytes all within normal range. Cardiac enzymes are negative for coronary ischemia. Serology positive for coronavirus. Urinalysis unremarkable. Specific gravity was 1.[address] of the chest as noted. ASSESSMENT: 1. A 71-year-old female with COVID-19 pneumonia bilaterally. 2. Acute hypoxemic respiratory failure requiring supplemental oxygen. 3. Profound dementia. 4. History of hypothyroidism. 5. History of previous cancer surgery, exact details are unclear. PLAN: 1. Admit to the ICU. 2. Supplemental oxygen. 3. Decadron. 4. Empiric antibiotics. 5. Lovenox. 6. I will discuss with her treatment plan. MICHAEL/CAMI/CATALINO DR: MICHAEL/orlando TID: [id number]
--- NOTE | 2021-11-04 14:50 | NUR ---
PT ARRIVED TO UNIT VIA EMS. PT IS STABLE AT TIME OF ADMISSION. PT IS CONFUSED AND KEEPS TAKING OXYGEN OFF. PT IS PLACED IN ROOM THAT NURSING STAFF CAN VISUALIZE PT THROUGH DOOR. DR TOLENTINO IS NOTIFIED OF PT ADMISSION. PT IS RESTING IN ROOM AT THIS TIME. WILL CONTINUE TO MONITOR.
[2021-11-04] MEDS ORDERED: LEVO50TA5 PO (15:33)
[2021-11-04] MEDS: ENOXAPARIN 40 MG/0.4 ML SYRINGE. SQ SCH (18:16)
[2021-11-04] MEDS: guaiFENesin DM 200MG/20MG 10 ML SYRUP PO PRN (19:26)
[2021-11-04] MEDS: DEXAMETHASONE SOD PHOS 4 MG/ML VIAL. IVP SCH (20:03)
[2021-11-05] VITALS (17 sets, daily range): BP systolic 112–159; BP diastolic 54–88
--- NOTE | 2021-11-05 00:03 | NUR ---
Pt tried to get up to go to the bathroom; however, pt could not stop coughing and desat to the low 80's on 3 liters. Pt could not get up to go to the bathroom. Pt got back into bed without urinating. Placed muñoz at this time. Got about 700 ml out.
[2021-11-05] MEDS: guaiFENesin DM 200MG/20MG 10 ML SYRUP PO PRN ×2 (03:49→13:27)
--- NOTE | 2021-11-05 04:36 | NUR ---
Pt is becoming more agitated and will not keep her oxygen in her nose. Pt desats to 85% with it being out of her nose and then goes back up to 92% on 5 liters. Pt states "I want to get out of here!" Pt is not easily redirected.
[2021-11-05] MEDS: LEVOTHYROXINE 50 MCG TABLET PO SCH (05:59)
[2021-11-05] MEDS: DEXAMETHASONE SOD PHOS 4 MG/ML VIAL. IVP SCH ×2 (09:00→21:19)
--- NOTE | 2021-11-05 10:16 | PN ---
DATE: 11/05/2021 ATTENDING PHYSICIAN: Dr. Vlea. SUBJECTIVE: The patient remains confused. She is in no acute distress. OBJECTIVE FINDINGS: VITAL SIGNS: Blood pressure this morning is 140/78, pulse is 70 and regular. She is afebrile. Oxygen saturation 92% on 4 liters. HEENT: Head is without trauma. Pupils are reactive. Sclerae nonicteric. Oropharynx is clear. NECK: Supple. No bruits identified. LUNGS: Diminished breath sounds at bases. CARDIOVASCULAR: Showed regular heart tones. ABDOMEN: Soft. EXTREMITIES: Without edema. NEUROLOGIC: Profoundly confused and demented. ASSESSMENT: 1. A 71-year-old gentleman with COVID-19 pneumonia bilaterally. 2. Acute hypoxemic respiratory failure, requiring supplemental oxygen. 3. Profound dementia. 4. Hypothyroidism, on replacement. 5. History of previous breast cancer surgery. PLAN: 1. Keep in ICU. 2. We are trying to wean down supplemental oxygen, she is unchanged. 3. Continue Decadron. 4. Empiric antibiotics. 5. Lovenox. 6. I will update the . There are no children involved. MICHAEL/JAZZMINE DR: Johanna TID: [id number]
[2021-11-05] MEDS: MORPHINE SULFATE 2 MG/ML DISP.SYRIN. IV PRN ×2 (13:54→21:21)
[2021-11-05] MEDS: ENOXAPARIN 40 MG/0.4 ML SYRINGE. SQ SCH (18:29)
--- NOTE | 2021-11-05 19:12 | NUR ---
Pt has been confused and agitated throughout this shift. Patient continually pulled off the nasal canula and/or NRB mask then desats into the low 80's immediately without an oxygen supply. Patient had to be switched from the nasal canula to a NRB mid shift due to a continual decrease in her oxygen sats. Patient also seems less agitated with the NRB vs Nasal Canula. Dr. Vela and Franny Palencia CM were consulted due to patients declining condition and her code status. This issue will be revisited tomorrow after assessing patients condition. Patient is currently in bed with a NRB with an O2 sat of 93%.
[2021-11-06] VITALS (23 sets, daily range): BP systolic 110–171; BP diastolic 52–93
[2021-11-06] MEDS: LEVOTHYROXINE 50 MCG TABLET PO SCH ×2 (06:00→06:45)
[2021-11-06] MEDS: DEXAMETHASONE SOD PHOS 4 MG/ML VIAL. IVP SCH ×2 (09:16→19:06)
[2021-11-06] MEDS: MORPHINE SULFATE 2 MG/ML DISP.SYRIN. IV PRN ×3 (09:17→23:25)
--- NOTE | 2021-11-06 10:39 | RAD ---
XR CHEST 1V CLINICAL INDICATIONS: Reason: covid pneumonia / Spl. Instructions: / History: COMPARISON: 11/10/2019. Findings: Bilateral lung infiltrates are seen more prominent on the left side. No pleural effusion or pneumothorax is seen. The heart size, pulmonary vasculature, mediastinum and both owen are stable. IMPRESSION: Bilateral lung infiltrates. Electronically signed by: Arvin Hurst MD (11/06/2021 10:37 AM) [id number]
[2021-11-06] MEDS: ENOXAPARIN 40 MG/0.4 ML SYRINGE. SQ SCH (18:18)
--- NOTE | 2021-11-06 18:19 | NUR ---
O2 weaned to 8L HFNC. Pt remains confused and agitated. Ativan given x 1 for agitation, morphine given x 1 for pain. PO intake minimal. Pt agitated and refusing water and food. Significant coughing noted when intake allowed. Discussed with Dr. Vela. Speech therapy consulted. Urine output 40 mL for shift. New 20g IV placed in left forearm. Addendum: 11/06/21 at 1826 by CRISTIANE FRANCISCO RN RN Urine output 400 mL for shift.
--- NOTE | 2021-11-06 21:09 | PN ---
DATE: 11/06/2021 ATTENDING PHYSICIAN: Dr. Vela. SUBJECTIVE: The patient is comfortable. She is pleasantly confused. She has no acute respiratory distress at this time. OBJECTIVE FINDINGS: VITAL SIGNS: Blood pressure this morning is 140/70 mmHg, pulse is 60 and regular, temperature 99.0 degrees Fahrenheit and oxygen saturation 93% on 10 liters nasal flow. HEENT: Head is without trauma. Pupils are reactive. Sclerae nonicteric. Oropharynx is clear. NECK: Supple, no bruits identified. LUNGS: Shallow respirations. Minimal rhonchi. CARDIOVASCULAR: Showed regular heart tones. ABDOMEN: Soft. EXTREMITIES: Without edema. NEUROLOGIC: Pleasantly confused. ASSESSMENT: A 71-year-old female with; 1. Bilateral COVID-19 pneumonia. 2. Acute hypoxemic respiratory failure. 3. 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 She has been evaluated at [facility]. 4. Hypothyroidism, on placement. 5. History of breast cancer surgery. PLAN: 1. Continue supplemental oxygen. We are trying to wean down. 2. Continue Decadron. 3. Diet as tolerated. 4. There is a followup chest x-ray that has been ordered and is pending. XUAN DR: Johanna TID: [id number] CC: DARION VALDEZ
[2021-11-07] VITALS (16 sets, daily range): BP systolic 128–168; BP diastolic 56–121
[2021-11-07] MEDS: MORPHINE SULFATE 2 MG/ML DISP.SYRIN. IV PRN (03:48)
[2021-11-07] MEDS: LEVOTHYROXINE 50 MCG TABLET PO SCH (05:04)
[2021-11-07] MEDS: DEXAMETHASONE SOD PHOS 4 MG/ML VIAL. IVP SCH ×2 (09:54→19:53)
--- NOTE | 2021-11-07 10:10 | PN ---
DATE: 11/07/2021 ATTENDING PHYSICIAN: Dr. Vela. SUBJECTIVE: She remains very confused. We are struggling trying to keep her oxygen and her face mask on. OBJECTIVE FINDINGS: VITAL SIGNS: Blood pressure this morning is 140/79. She is afebrile, pulse is 76 and regular, oxygen saturation 92% on 10 liters by high-flow nasal cannula. HEENT: Head is without trauma. Pupils are reactive. Sclerae nonicteric. The oropharynx is clear. NECK: Supple. LUNGS: Coarse rhonchi bilaterally. CARDIOVASCULAR: Showed regular heart tones. No gallops. ABDOMEN: Soft. EXTREMITIES: Without edema. NEUROLOGIC: Profoundly confused. LABORATORY DATA: Followup chest x-ray shows bilateral infiltrates, not much improvement since admission. ASSESSMENT: 1. This 71-year-old female has bilateral COVID pneumonia. 2. Acute hypoxemic respiratory failure. 3. 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 PLAN: 1. Continue supportive care. 2. Supplemental oxygen. We were trying to wean down. 3. Empiric corticosteroids. 4. Lovenox. 5. Prognosis is quite guarded at this time. I have notified her and journalists and other writers. SABAS DR: Johanna TID: [id number] CC: DARION VALDEZ
--- NOTE | 2021-11-07 13:38 | NUR ---
Dr. Vela spoke with pt's regarding code status. Dr. Vela ordered for patient to be a DNR per .
[2021-11-07] MEDS: ENOXAPARIN 40 MG/0.4 ML SYRINGE. SQ SCH (18:32)
[2021-11-08] VITALS (22 sets, daily range): BP systolic 118–163; BP diastolic 55–93
--- NOTE | 2021-11-08 01:43 | NUR ---
communication assistant in giving oral care to patient. Pt o2 saturation dropped to low 80's. Oral care stopped and non rebreather replaced. pt oxygen saturations returned to 95-97% with high flow nasal cannula and non rebreather.
[2021-11-08] MEDS: LEVOTHYROXINE 50 MCG TABLET PO SCH (02:51)
--- NOTE | 2021-11-08 04:43 | NUR ---
Pt's heart rate dropped to 37-44 for 10 min before this nurse called her to let him know pt's status. Pt's heart rate has been sustaining for 45 min. Pt's is now at bedside.
--- NOTE | 2021-11-08 05:52 | NUR ---
Pt's at bedside. 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 Pt is responsive to .
--- NOTE | 2021-11-08 06:10 | NUR ---
This nurse suctioned pt d/t copious amounts of secretions.
[2021-11-08] MEDS: DEXAMETHASONE SOD PHOS 4 MG/ML VIAL. IVP SCH ×2 (09:41→19:54)
[2021-11-08] MEDS: MORPHINE SULFATE 2 MG/ML DISP.SYRIN. IV PRN ×4 (09:43→19:53)
--- NOTE | 2021-11-08 09:50 | PN ---
DATE: 11/08/2021 ATTENDING PHYSICIAN: Dr. Vela. SUBJECTIVE: Very confused. She is still symptomatic, requiring high-flow oxygen to maintain saturation. Yesterday, I spoke with her and power of collections attorney. We were able to put her advanced directive. She is now a DNR. He was able to come in yesterday and spent about an hour to visit with her. OBJECTIVE FINDINGS: VITAL SIGNS: Blood pressure this morning is 158/92, pulse is between 80 and 90, respirations between 20 and 30, somewhat labored, temperature 99.1 degrees Fahrenheit, oxygen saturation 94% on 15 liters nonrebreather mask. HEENT: Head is without trauma. Pupils are reactive. Sclerae nonicteric. Oropharynx clear. NECK: Supple. LUNGS: Shallow respirations. Coarse rhonchi bilaterally. CARDIOVASCULAR: Showed distant heart tones. ABDOMEN: Soft. EXTREMITIES: Without edema. NEUROLOGIC: Profoundly confused and agitated. ASSESSMENT: 1. A 71-year-old female with bilateral COVID pneumonia. 2. Acute hypoxemic respiratory failure, requiring high-flow oxygen to maintain saturations. 3. 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 PLAN: 1. Continue supplemental oxygen. 2. She is now a DNR per her and power of collections attorney. 3. Comfort measures. 4. Empiric corticosteroids. 5. If symptoms become worse, we may consider hospice care. MICHAEL/MARIO RODRIGUEZ/[place] TID: [id number]
--- NOTE | 2021-11-08 10:00 | NUR ---
pt was awake this am, HR now between 50's-80's, pt had increase in air hunger and restlessness, pt was medicated with PRN morphine 2mg and ativan 0.5mg IVP per orders. Pt now resting comfortably. Was able to remove high flow cannula and pt is now only requiring the 100% NRB, with oxygen sats mid to upper 90's. Dr. Vela was into see pt, and called pt's with an update. Will CTM pt.
--- NOTE | 2021-11-08 13:00 | NUR ---
Yana from , called to see how pt is today and if she needs to come do eval today. Pt is only alert to herself and unable to follow commands. Advised that Yana call and check on pt tomorrow regarding eval. Yana was in agreement.
[2021-11-08] MEDS: ENOXAPARIN 40 MG/0.4 ML SYRINGE. SQ SCH (17:22)
--- NOTE | 2021-11-08 18:00 | NUR ---
Medicated pt with morphine and ativan, d/t increased air hunger and restlessness. Monitoring pt for decrease in air hunger. Pt is currently resting comfortably.
[2021-11-09] VITALS (20 sets, daily range): BP systolic 119–167; BP diastolic 53–89
[2021-11-09] MEDS: MORPHINE SULFATE 2 MG/ML DISP.SYRIN. IV PRN ×4 (03:34→16:52)
[2021-11-09] MEDS: LEVOTHYROXINE 50 MCG TABLET PO SCH (04:08)
[2021-11-09] MEDS: DEXAMETHASONE SOD PHOS 4 MG/ML VIAL. IVP SCH ×2 (08:17→20:05)
[2021-11-09 10:09] LABS: BASO % 0 % (0-3); EOS % 0 % (0-3); HEMATOCRIT 41.2 % (36.0-47.0); HEMOGLOBIN 13.6 g/dL (12.0-15.5); LYMPH # 0.4 x10^3/uL (1.0-4.8); LYMPH % 4 % (24-48); MEAN CORPUSCULAR HEMOGLOBIN 31 pg (25-35); MEAN CORPUSCULAR HGB CONC 33 g/dL (31-37); MEAN CORPUSCULAR VOLUME 93 fL (79-100); MONO # 0.5 x10^3/uL (0.0-1.1); MONO % 4 % (0-9); NEUT # 10.5 x10^3uL (1.8-7.7); NEUT % 91 % (31-73); PLATELET COUNT 350 x10^3/uL (140-400); RED BLOOD COUNT 4.43 x10^6/uL (3.50-5.40); RED CELL DISTRIBUTION WIDTH 12.8 % (11.5-14.5); WHITE BLOOD COUNT 11.5 x10^3/uL (4.0-11.0)
[2021-11-09 10:28] LABS: ALBUMIN 2.6 g/dL (3.4-5.0); ALBUMIN/GLOBULIN RATIO 0.5 (1.0-1.7); CALCIUM 8.8 mg/dL (8.5-10.1); CREATININE 0.9 mg/dL (0.6-1.0); GFR 61.9; POTASSIUM 3.9 mmol/L (3.5-5.1); TOTAL BILIRUBIN 0.4 mg/dL (0.2-1.0); TOTAL PROTEIN 7.7 g/dL (6.4-8.2)
--- NOTE | 2021-11-09 11:55 | PN ---
DATE: 11/09/2021 ATTENDING PHYSICIAN: Dr. Vela. SUBJECTIVE: The patient is very confused. She is still requiring high-flow oxygen to maintain saturations. She is bedridden. She cannot do much. OBJECTIVE FINDINGS: VITAL SIGNS: Blood pressure this morning is 141/88 mmHg. Her respirations are between 25 and 32 per minute and shallow. Her oxygen saturations are at 93% on 15 liters, on nonrebreather mask. Temperature is 99.1 degrees Fahrenheit. HEENT: Head is without trauma. Pupils are reactive. Sclerae nonicteric. The oropharynx is clear. NECK: Supple. LUNGS: Shallow respirations with very minimal air movement. CARDIOVASCULAR: Showed distant heart tones. No gallops. ABDOMEN: Soft. EXTREMITIES: Without edema. NEUROLOGIC: Very confused and bedridden. ASSESSMENT: 1. A 71-year-old female with bilateral COVID pneumonia. 2. Acute hypoxemic respiratory failure, requiring high-flow oxygen to maintain adequate saturations. 3. History of corticobasal dementia, which is advanced and rapidly progressive. PLAN: 1. Continue supportive care. 2. Supplemental oxygen. 3. Morphine for air hunger. 4. She is now a DNR per advanced directives. Earlier yesterday morning, she had an episode of bradycardia. was allowed to come in. She rallied. She is not any better today, but at least she is stable. Prognosis remains quite guarded. Even if she survives this, she has rapidly progressive dementia that will cause her demise. DENYS DR: Johanna TID: [id number] CC: DARION VALDEZ
[2021-11-09] MEDS: IV DEXTROSE 5% 1,000 ML IV SCH (12:30)
[2021-11-09] MEDS: ENOXAPARIN 40 MG/0.4 ML SYRINGE. SQ SCH (18:45)
[2021-11-10] VITALS (19 sets, daily range): BP systolic 100–168; BP diastolic 51–94
[2021-11-10] MEDS: LEVOTHYROXINE 50 MCG TABLET PO SCH (06:00)
[2021-11-10] MEDS: IV DEXTROSE 5% 1,000 ML IV SCH ×2 (06:15→17:37)
[2021-11-10] MEDS: DEXAMETHASONE SOD PHOS 4 MG/ML VIAL. IVP SCH ×2 (13:51→19:30)
[2021-11-10] MEDS: ENOXAPARIN 40 MG/0.4 ML SYRINGE. SQ SCH (17:38)
[2021-11-10] MEDS: MORPHINE SULFATE 2 MG/ML DISP.SYRIN. IV PRN (19:31)
--- NOTE | 2021-11-10 21:58 | PN ---
DATE: 11/10/2021 ATTENDING PHYSICIAN: Dr. Vela. SUBJECTIVE: The patient remains confused, but she is comfortable. There is no respiratory distress. OBJECTIVE FINDINGS: GENERAL: We are able to wean down her oxygen requirements to 8 liters by nasal cannula. This is down from a combination of 15 L as well as a rebreathing mask. She is resting comfortably, but that is due to the previous morphine and Ativan ordered. VITAL SIGNS: Her blood pressure this morning is 157/83, pulse 67 and regular. She is afebrile. Oxygen saturation 91% on 8 liters by nasal cannula. HEENT: Head is without trauma. Pupils are reactive. Sclerae nonicteric. Oropharynx clear. NECK: Lots of tenacious secretions. LUNGS: Shallow respirations with rhonchi at the bases. CARDIOVASCULAR: Showed regular heart tones. ABDOMEN: Soft. EXTREMITIES: Without edema. NEUROLOGIC: Profoundly very confused and sedated. ASSESSMENT: 1. A 71-year-old female with bilateral COVID pneumonia. 2. Acute hypoxemic respiratory failure with improved oxygen demands. It is being weaned down. 3. History of corticobasal dementia, which is rapidly progressive. 4. Mild dehydration on chemistry yesterday. Her sodium was 148 mEq with a creatinine of 0.9 mg/dL. PLAN: 1. Continue supportive care. 2. IV hydration with dextrose. 3. Serial chemistry. 4. Follow up chest x-ray in the morning. 5. She remains a DNR per advanced directives. I have discussed the case with the . DENYS DR: Johanna TID: [id number] CC: DARION VALDEZ
[2021-11-11] VITALS (10 sets, daily range): BP systolic 97–147; BP diastolic 53–79
[2021-11-11] MEDS: IV DEXTROSE 5% 1,000 ML IV SCH (04:30)
[2021-11-11] MEDS: LEVOTHYROXINE 50 MCG TABLET PO SCH (06:00)
[2021-11-11] MEDS: DEXAMETHASONE SOD PHOS 4 MG/ML VIAL. IVP SCH (08:05)
--- NOTE | 2021-11-11 08:31 | RAD ---
XR CHEST 1V History: Reason: covid, short of air / Spl. Instructions: / History: Comparison: November 06, 2021 Findings: Mild multifocal ill-defined opacities bilaterally, similar compared to prior allowing for differences in technique. No pleural effusion. No pneumothorax. Unchanged heart size. Impression: 1. Mild multifocal ill-defined opacities, similar compared to prior. Electronically signed by: Erasto Winters DO (11/11/2021 8:29 AM) [id number]
--- NOTE | 2021-11-11 12:00 | NUR ---
Discussed goals of care with pts this AM. Decision to transition pt to inpatient hospice. [facility] at bedside to evaluate pt. Orders placed for comfort measures.
== END 2021-11-11 11:33 | disposition hospice, inpatient (51) | DRG 177 ==
LOC: ER 09:33 → ICU 12:03
PROVIDERS: ADMIT Hospitalist; ATTEND Hospitalist
PROC: 5A0935A Assistance with Respiratory Ventilation, Less than 24 Consecutive Hours, High Flow/Velocity Cannula (ICD-10-PCS; principal; 2021-11-10)
PROC: 5A0935A Assistance with Respiratory Ventilation, Less than 24 Consecutive Hours, High Flow/Velocity Cannula (ICD-10-PCS; 2021-11-11)
DX: U07.1 COVID-19 (principal); J12.82 Pneumonia due to coronavirus disease 2019; J96.01 Acute respiratory failure with hypoxia; E03.9 Hypothyroidism, unspecified; F02.80 Dementia in other diseases classified elsewhere, unspecified severity, without behavioral disturbance, psychotic disturbance, mood disturbance, and anxiety; Z96.659 Presence of unspecified artificial knee joint; Z66 Do not resuscitate; E86.0 Dehydration; G30.9 Alzheimer's disease, unspecified; Z85.3 Personal history of malignant neoplasm of breast; Z74.01 Bed confinement status; Z88.8 Allergy status to other drugs, medicaments and biological substances; Z88.5 Allergy status to narcotic agent; Z51.5 Encounter for palliative care
CPT/HCPCS: 36415; 70450; 71045; 71275; 72125; 80053; 81001; 82553; 83605; 83735; 83880; 84484; 85025; 85379; 85610; 85730; 87040; 87086; 87426; 87804; 93005; 96361; 96365; 96375; J0456; J0696; J1100; J1650; J2060; J2270; J7050; Q9967; 99291-25; J7030

== ENCOUNTER 2021-11-11 11:34 | Inpatient (IN) | payer BC, MEDICARE, OTHER ==
[~2021-11-11 11:34] MED LIST changes: +LEVO50TA5 PO
[2021-11-11] MEDS ORDERED: ACETAMINOPHEN 650 MG SUPP.RECT. PR PRN (11:45)
--- NOTE | 2021-11-11 17:48 | HP ---
DATE OF SERVICE: 11/11/2021 ADMIT DATE: 11/11/2021 HISTORY OF PRESENT ILLNESS: The patient is a 71-year-old female patient, who was admitted originally with COVID pneumonia, acute hypoxic respiratory failure. She apparently has a history of corticobasal dementia that is rapidly progressing and had had mild dehydration on chemistry on admission that has resolved. Apparently, she is a DNR per advanced directives and discussion was held with her and decision was made to admit her to inpatient hospice for comfort and end of life care. PAST MEDICAL HISTORY: Significant for dementia that is profound, apparently has tested positive for coronavirus on 10/28/2021, eight days ago. Since then, she became progressively weak, fatigued and not eating well. Her oxygen saturation was down to 84%. PAST SURGICAL HISTORY: Significant to include cancer surgery, unspecified; cholecystectomy; knee replacement. FAMILY HISTORY: Noncontributory. SOCIAL HISTORY: She is and lives with . She is a nonsmoker, nondrinker. ALLERGIES: SHE IS ALLERGIC TO THE CODEINE, DIPYRIDAMOLE, SULFAMETHOXAZOLE AND TRIMETHOPRIM. PHYSICAL EXAMINATION: GENERAL: On examining her, she was resting flat, comfortably in bed with at bedside. Does not seem to be in any respiratory distress. No pallor, jaundice, cyanosis or thyromegaly. No jugular venous distention. No limb edema. VITAL SIGNS: Her heart rate was 75, blood pressure was 140/74, temperature was 98.5, respiratory rate was 20 and oxygen saturation was 93% on room air. HEAD, EYES, EARS, NOSE AND THROAT: Normocephalic, atraumatic. NECK: Supple. HEART: Normal first and second heart sounds, no gallop or murmur. CHEST: Clear to auscultation, no crepitation or rhonchi. ABDOMEN: Distended, soft, nontender. NEUROLOGIC: She is demented without any obvious lateralizing sign. ASSESSMENT: 1. COVID-19 pneumonia. 2. Acute hypoxic respiratory failure. 3. Corticobasal dementia that is rapidly progressing. 4. Mild dehydration that has resolved. PLAN: To continue with comfort care. She is now on morphine infusion as well as Ativan, acetaminophen and atropine sulfate. TL/BETY/CATALINO DR: TL/orlando TID: [id number]
[2021-11-11] MEDS: MORPHINE SULFATE 30 MG/30 ML 30 ML IV PRN ×3 (18:16→22:29)
[2021-11-12] MEDS: MORPHINE SULFATE 30 MG/30 ML 30 ML IV PRN ×6 (01:22→16:24)
[2021-11-12 04:55] VITALS: BP 114/65
[2021-11-12] MEDS ORDERED: BISACODYL 10 MG SUPP.RECT PR PRN (13:00)
[2021-11-12] MEDS: MORPHINE SULFATE 10 MG/ML SYRINGE. IV SCH ×3 (15:10→17:21)
[2021-11-12] MEDS: MORPHINE HIGH DOSE PCA 50 ML IV PRN (18:12)
[2021-11-12 19:10] VITALS: BP 112/71
--- NOTE | 2021-11-13 02:11 | PN ---
SUBJECTIVE: The patient is resting flat, sleeping comfortably, in no apparent distress. Nursing staff did not voice any concerns, her pain and anxiety is well controlled. PHYSICAL EXAMINATION: GENERAL: When I examined her, she looked well and was clearly in no apparent respiratory distress. VITAL SIGNS: Stable. ASSESSMENT: 1. COVID-19 pneumonia. 2. Acute hypoxic respiratory failure. 3. Corticobasal dementia that is rapidly progressing. 4. Mild dehydration that has resolved. PLAN: To continue with comfort care. She is now on morphine infusion as well as Ativan, acetaminophen, atropine sulfate. RASHARD DR: Darrel TID: [id number]
[2021-11-13 04:20] VITALS: BP 87/56
[2021-11-13] MEDS: MORPHINE HIGH DOSE PCA 50 ML IV PRN ×2 (05:03→16:48)
[2021-11-13 07:30] VITALS: BP 91/58
--- NOTE | 2021-11-13 21:41 | PN ---
DATE: 11/13/2021 SUBJECTIVE: The patient is resting flat in bed comfortably, in no apparent distress. Nursing staff did not voice any concerns, stated that she had uneventful night. PHYSICAL EXAMINATION: GENERAL: When I examined her, there is no pallor, jaundice, cyanosis, or thyromegaly. No jugular venous distention. No limb edema. VITAL SIGNS: Her heart rate was 111. Her blood pressure was 87/56, temperature was 97.9, respiratory rate was 18 and oxygen saturation was 81% on room air. The rest of clinical exam stable. ASSESSMENT: 1. COVID-19 pneumonia. 2. Acute hypoxic respiratory failure. 3. Corticobasal dementia that is rapidly progressing. 4. Mild dehydration that has resolved. PLAN: To continue with comfort care. She is now on morphine infusion as well as Ativan, acetaminophen, and atropine sulfate. MARLA DR: Darrel TID: [id number]
[2021-11-14] MEDS: MORPHINE HIGH DOSE PCA 50 ML IV PRN ×3 (03:33→22:45)
[2021-11-14 08:00] VITALS: BP 111/62
[2021-11-14 19:30] VITALS: BP 106/55
--- NOTE | 2021-11-14 23:05 | PN ---
DATE: 11/14/2021 SUBJECTIVE: The patient is resting flat, comfortably in bed, in no apparent distress. Nursing staff stated that she does have an episode of gurgling for which she was repositioned here and increased her morphine drip and since then she has been comfortable. Her seems to be somewhat more emotional today as he has been here with her, staying with her sleeping here. OBJECTIVE: GENERAL: On examining her, there was no pallor, jaundice, cyanosis, thyromegaly, or jugular venous distention. No limb edema. VITAL SIGNS: Her heart rate was 108, blood pressure was 111/62, temperature was 99, respiratory rate was 16 and oxygen saturation was 83% on room air. The rest of clinical exam stable. ASSESSMENT: 1. COVID-19 pneumonia. 2. Acute hypoxic respiratory failure. 3. Corticobasal dementia that is rapidly progressing for mild dehydration that has resolved. PLAN: To continue with comfort care. She is now on morphine infusion as well as Ativan, acetaminophen, and atropine sulfate. DAVID DR: Darrel TID: [id number]
[2021-11-15] MEDS ORDERED: MORPHINE SULFATE 30 MG/30 ML 30 ML IV PRN (06:15)
[2021-11-15] MEDS: MORPHINE HIGH DOSE PCA 50 ML IV PRN ×2 (10:04→17:49)
[2021-11-15] MEDS: ATROPINE 1% OPHTH SOLUTION 5ML BOTTLE. SL PRN ×2 (12:03→14:05)
[2021-11-15 19:30] VITALS: BP 107/56
--- NOTE | 2021-11-15 21:31 | PN ---
DATE: 11/15/2021 SUBJECTIVE: The patient is resting, slightly propped up, sleeping comfortably, in no apparent distress. Nursing staff stated that she did spike a temperature and was treated with Tylenol as well as cooling blankets. PHYSICAL EXAMINATION: GENERAL: When I examined her, she looked well and was clearly in no apparent respiratory distress. VITAL SIGNS: Stable. LABORATORY DATA: No lab works were ordered. ASSESSMENT: 1. COVID-19 pneumonia. 2. Acute hypoxic respiratory failure. 3. Cortical based dementia and is fairly progressive. 4. Dehydration has resolved. PLAN: To continue with comfort care. She is now on morphine infusion as well as Ativan. Nursing staff was instructed to increase the dose or frequency as needed to keep the patient comfortable. GERDA DR: Darrel TID: [id number]
[2021-11-16] MEDS: MORPHINE HIGH DOSE PCA 50 ML IV PRN ×3 (00:54→15:54)
[2021-11-16 04:25] VITALS: BP 66/41
--- NOTE | 2021-11-16 22:50 | PN ---
DATE: 11/16/2021 SUBJECTIVE: The patient is resting, slightly propped up in bed, in no apparent respiratory distress. PHYSICAL EXAMINATION: VITAL SIGNS: Her heart rate was 66, blood pressure was 66/41, temperature was 99.9, respiratory rate 16, and oxygen saturation was 72% on room air. Rest of clinical exam stable. Her output was 600. ASSESSMENT: 1. COVID-19 pneumonia. 2. Acute hypoxic respiratory failure. 3. Cortical basal dementia that is fairly progressive. 4. Dehydration. It has resolved. PLAN: To continue with comfort care. Clear instruction for the nursing staff to increase the dose and frequency of the morphine and/or Ativan to keep the patient comfortable. PITO DR: Darrel TID: [id number]
--- NOTE | 2021-11-24 10:52 | DS ---
DATE OF DISCHARGE: 11/16/2021 DISCHARGE SUMMARY HOSPITAL COURSE: The patient is a 71-year-old female patient, who was basically admitted to [facility] with acute hypoxic respiratory failure. She apparently has a history of corticobasal dementia that has been rapidly progressing and has had mild dehydration. On her lab work on admission, that has resolved. She has also aspiration pneumonia and tested positive for COVID infection. She is a DNR per advanced directives and in discussion with her , a decision was made to admit her to inpatient hospice for comfort and end of life care. She was treated with morphine as well as Ativan and gradually her heart rate and blood pressure dropped and on 11/16/2021 at 17:29, the patient was seen by the nursing staff and was found to have no palpable pulses, no audible heart sounds, no spontaneous breathing and she was pronounced . CAUSES OF : 1. Cardiopulmonary arrest. 2. Acute hypoxic respiratory failure. 3. Aspiration pneumonia. 4. Advanced dementia. KALEIGH DR: Darrel TID: [id number]
== END 2021-11-16 19:53 | DRG 189 ==
LOC: ICU 11:34
PROVIDERS: ADMIT Internal Medicine; ATTEND Internal Medicine
DX: J96.01 Acute respiratory failure with hypoxia (principal); U07.1 COVID-19; J69.0 Pneumonitis due to inhalation of food and vomit; Z51.5 Encounter for palliative care; E86.0 Dehydration; Z96.659 Presence of unspecified artificial knee joint; Z90.49 Acquired absence of other specified parts of digestive tract; Z88.5 Allergy status to narcotic agent; Z88.8 Allergy status to other drugs, medicaments and biological substances; Z66 Do not resuscitate; F03.90 Unspecified dementia, unspecified severity, without behavioral disturbance, psychotic disturbance, mood disturbance, and anxiety; I46.9 Cardiac arrest, cause unspecified
CPT/HCPCS: J2060; J2270; Q5005